=== PATIENT | female | born 1935 | race Caucasian/White ===

== ENCOUNTER 2016-08-07 17:06 | Inpatient (IN) | payer MEDICARE ==
[~2016-08-07] VITALS: Ht 157.5 cm; Wt 70.2 kg
[~2016-08-07 17:06] MED LIST: ACET-66 PO; ATOR20TA86 PO; CARV3 PO; ERGO2000 PO; FURO20TA4 PO; GABA-529 PO; GLIM4TAB3 PO; LOSA25TA21 PO; MECL-129 PO; METF500T4 PO; NITR0.4T SL
[2016-08-07] MEDS ORDERED: TRIGENTA PO (18:19)
[2016-08-07] MEDS ORDERED: ONDANSETRON HCL 4 MG/2 ML VIAL IVP ONE (19:45)
[2016-08-07] MEDS ORDERED: MORPHINE SULFATE 4 MG/ML SYRINGE IVP ONE ×3 (19:45→23:30)
[2016-08-07] MEDS ORDERED: SODIUM CHLORIDE 0.9% 1,000 ML IV ONE (19:45)
[2016-08-07 20:10] LABS: BASOPHILS # (AUTO) 0.02 K/uL (0.00-0.20); BASOPHILS % (AUTO) 0.2 % (0.0-2.0); EOSINOPHILS # (AUTO) 0.01 K/uL (0.00-0.70); EOSINOPHILS % (AUTO) 0.06 % (1.0-6.0); HEMATOCRIT 28.5 % (36-46); HEMOGLOBIN 9.6 g/dL (12.0-16.0); LYMPHOCYTES # (AUTO) 2.1 K/uL (1.0-4.8); LYMPHOCYTES % (AUTO) 18.1 % (22.0-44.0); MEAN CORPUSCULAR HGB CONC 33.9 G/dL (31.0-37.0); MEAN CORPUSCULAR VOLUME 88 fL (80-100); MONOCYTES % (AUTO) 8.4 % (2.0-9.0); NEUTROPHILS # (AUTO) 8.4 K/uL (1.8-7.7); NEUTROPHILS % (AUTO) 73.2 % (40.0-70.0); PLATELET COUNT (AUTO) 147 K/uL (150-450); RED BLOOD CELL COUNT(AUTO) 3.22 MIL/uL (4.00-5.20); RED CELL DISTRIBUTION WIDTH 14.8 % (11.5-14.5); WHITE BLOOD COUNT (AUTO) 11.4 K/uL (4.5-11.0)
[2016-08-07 20:35] LABS: CALCIUM, TOTAL 8.2 mg/dL (8.8-10.5); CREATININE 1.47 mg/dL (0.60-1.30); POTASSIUM 4.3 mmol/L (3.5-5.1)
[2016-08-07 20:40] LABS: ALBUMIN 3.6 g/dL (3.4-5.0); BILIRUBIN,TOTAL 0.2 mg/dL (0.1-1.0); TOTAL PROTEIN, SERUM 7.3 g/dL (6.4-8.2)
[2016-08-07] MEDS ORDERED: 0.9% SODIUM CHLORIDE 10 ML SYRINGE IVP PRN (23:15)
[2016-08-07] MEDS ORDERED: ONDANSETRON HCL 4 MG/2 ML VIAL IVP PRN (23:15)
[2016-08-07] MEDS ORDERED: ACETAMINOPHEN 325 MG TABLET PO PRN (23:15)
[2016-08-08] VITALS (7 sets, daily range): BP systolic 98–192; BP diastolic 52–76
[2016-08-08] MEDS ORDERED: ACETAMINOPHEN 500 MG TABLET PO PRN (00:15)
[2016-08-08] MEDS: CARVEDILOL 3.125 MG TABLET PO SCH ×3 (00:15→23:30)
[2016-08-08] MEDS ORDERED: 0.9% SODIUM CHLORIDE 10 ML SYRINGE IVP PRN (00:15)
[2016-08-08] MEDS: DOCUSATE SODIUM 100 MG CAPSULE PO SCH ×3 (00:15→23:30)
[2016-08-08] MEDS ORDERED: NITROGLYCERIN 0.4 MG SUBLINGUAL TABLET #25 SL PRN (00:15)
[2016-08-08] MEDS ORDERED: DEXTROSE 50%-WATER 25 GM/50 ML SYRINGE IVP PRN (00:30)
[2016-08-08] MEDS ORDERED: 0.9% SODIUM CHLORIDE 10 ML VIAL IVP ONE (00:31)
[2016-08-08] MEDS ORDERED: ONDANSETRON HCL 4 MG/2 ML VIAL IVP ONE (00:31)
[2016-08-08] MEDS ORDERED: SUCCINYLCHOLINE CHLORIDE 20 MG/ML 10 ML VIAL IVP ONE (00:31)
[2016-08-08] MEDS ORDERED: MORPHINE SULFATE/PF 0.5 MG/ML 10 ML AMP IVP ONE (00:31)
[2016-08-08] MEDS ORDERED: LIDOCAINE HCL/PF 2% 5 ML VIAL IM ONE (00:31)
[2016-08-08] MEDS ORDERED: FentaNYL CITRATE-PF 100 MCG/2 ML VIAL IVP ONE (00:31)
[2016-08-08] MEDS ORDERED: DEXAMETHASONE SOD PHOS 4 MG/ML VIAL IVP ONE (00:31)
[2016-08-08] MEDS ORDERED: PROPOFOL 1% 20 ML VIAL IVP ONE (00:31)
[2016-08-08 02:10] LABS: GLUCOSE,POINT OF CARE 142 MG/DL (70-110)
[2016-08-08] MEDS: MORPHINE SULFATE 2 MG/ML SYRINGE IVP PRN ×6 (04:23→18:31)
[2016-08-08 07:01] LABS: GLUCOSE,POINT OF CARE 111 MG/DL (70-110)
[2016-08-08] MEDS: PANTOPRAZOLE SODIUM 40 MG/VIAL IVP SCH (08:29)
[2016-08-08] MEDS: ATORVASTATIN CALCIUM 20 MG TABLET PO SCH (09:00)
[2016-08-08 11:46] LABS: GLUCOSE,POINT OF CARE 171 MG/DL (70-110)
[2016-08-08 18:46] LABS: GLUCOSE,POINT OF CARE 137 MG/DL (70-110)
[2016-08-08] MEDS ORDERED: SODIUM CHLORIDE 0.9% 1,000 ML IV ONE (19:10)
[2016-08-08] MEDS ORDERED: FentaNYL CITRATE-PF 100 MCG/2 ML VIAL IVP PRN (19:30)
[2016-08-08] MEDS ORDERED: MEPERIDINE-PF 25 MG/ML SYRINGE IVP PRN (19:30)
[2016-08-08] MEDS: ACETAMINOPHEN 1000 MG/ISO-OSM 100 ML IV SCH (20:00)
[2016-08-08] MEDS ORDERED: ACETAMINOPHEN 1000 MG/ISO-OSM 100 ML IV ONE (20:26)
[2016-08-08] MEDS: BUPIVACAINE HCL/PF 0.5% 30 ML VIAL ONE ×2 (20:27→22:20)
[2016-08-08] MEDS: BUPIVACAINE LIPOSOME/PF 1.3%-13.3MG/ML SUSPENSION 20 ML VIAL INJ ONE ×2 (20:48→22:20)
[2016-08-08] MEDS ORDERED: SODIUM CHLORIDE 0.9% 10 ML ONE (21:15)
[2016-08-08] MEDS ORDERED: METOPROLOL TARTRATE 5 MG/5 ML VIAL ONE (22:41)
[2016-08-08] MEDS ORDERED: METOPROLOL TARTRATE 5 MG/5 ML VIAL IVP ONE (22:45)
[2016-08-08] MEDS: GABAPENTIN 100 MG CAPSULE PO SCH (23:30)
[2016-08-08] MEDS: INSULIN ASPART 100 UNITS/ML SQ PRN (23:51)
[2016-08-09 00:21] LABS: GLUCOSE COMMENT 1 Received Meds; GLUCOSE,POINT OF CARE 206 MG/DL (70-110)
[2016-08-09] MEDS ORDERED: SODIUM CHLORIDE 0.9% 250 ML IV ONE (01:59)
[2016-08-09] MEDS: ACETAMINOPHEN 1000 MG/ISO-OSM 100 ML IV SCH ×3 (02:01→13:58)
[2016-08-09 04:20] VITALS: BP 162/59
[2016-08-09] MEDS: MORPHINE SULFATE 2 MG/ML SYRINGE IVP PRN ×6 (05:08→23:38)
[2016-08-09 05:46] LABS: GLUCOSE COMMENT 1 Received Meds; GLUCOSE,POINT OF CARE 228 MG/DL (70-110)
[2016-08-09] MEDS: INSULIN ASPART 100 UNITS/ML SQ PRN ×4 (05:59→21:36)
[2016-08-09 07:15] VITALS: BP 150/61
[2016-08-09 07:36] LABS: BASOPHILS # (AUTO) 0.01 K/uL (0.00-0.20); BASOPHILS % (AUTO) 0.1 % (0.0-2.0); EOSINOPHILS # (AUTO) 0.01 K/uL (0.00-0.70); EOSINOPHILS % (AUTO) 0.09 % (1.0-6.0); HEMATOCRIT 24.2 % (36-46); HEMOGLOBIN 8.3 g/dL (12.0-16.0); LYMPHOCYTES # (AUTO) 0.7 K/uL (1.0-4.8); LYMPHOCYTES % (AUTO) 6.1 % (22.0-44.0); MEAN CORPUSCULAR HEMOGLOBIN 30.6 pg (26.0-34.0); MEAN CORPUSCULAR HGB CONC 34.1 G/dL (31.0-37.0); MEAN CORPUSCULAR VOLUME 90 fL (80-100); MONOCYTES # (AUTO) 0.4 K/uL (0.1-1.0); NEUTROPHILS # (AUTO) 10.9 K/uL (1.8-7.7); PLATELET COUNT (AUTO) 124 K/uL (150-450)
[2016-08-09 07:42] LABS: NEUTROPHILS % (AUTO) 90.8 % (40.0-70.0)
[2016-08-09 08:00] LABS: CALCIUM, TOTAL 7.8 mg/dL (8.8-10.5); CREATININE 1.37 mg/dL (0.60-1.30); MAGNESIUM 2.1 mg/dL (1.80-2.40); POTASSIUM 4.4 mmol/L (3.5-5.1); THYROID STIMULATING HORMONE 1.26 uIU/mL (0.36-3.74)
[2016-08-09] MEDS: ATORVASTATIN CALCIUM 20 MG TABLET PO SCH (08:05)
[2016-08-09] MEDS: PANTOPRAZOLE SODIUM 40 MG/VIAL IVP SCH (08:06)
[2016-08-09] MEDS: OXYGEN THERAPY IH SCH (09:32)
[2016-08-09 11:14] VITALS: BP 147/54
[2016-08-09 12:26] LABS: GLUCOSE COMMENT 1 Received Meds; GLUCOSE,POINT OF CARE 197 MG/DL (70-110)
[2016-08-09 15:25] VITALS: BP 155/64
[2016-08-09 17:21] LABS: GLUCOSE COMMENT 1 Received Meds; GLUCOSE,POINT OF CARE 157 MG/DL (70-110)
[2016-08-09 19:45] VITALS: BP 148/61
[2016-08-09] MEDS: DOCUSATE SODIUM 100 MG CAPSULE PO SCH (21:23)
[2016-08-09] MEDS: CARVEDILOL 3.125 MG TABLET PO SCH (21:23)
[2016-08-09 23:36] VITALS: BP 163/75
[2016-08-10] VITALS (14 sets, daily range): BP systolic 128–189; BP diastolic 55–69
[2016-08-10] MEDS: MORPHINE SULFATE 2 MG/ML SYRINGE IVP PRN ×5 (02:57→17:31)
[2016-08-10] MEDS: OXYGEN THERAPY IH SCH ×2 (02:57→08:18)
[2016-08-10 06:23] LABS: BASOPHILS # (AUTO) 0.03 K/uL (0.00-0.20); BASOPHILS % (AUTO) 0.2 % (0.0-2.0); EOSINOPHILS % (AUTO) 0.01 % (1.0-6.0); HEMOGLOBIN 7.7 g/dL (12.0-16.0); LYMPHOCYTES # (AUTO) 2.4 K/uL (1.0-4.8); LYMPHOCYTES % (AUTO) 17.9 % (22.0-44.0); MEAN CORPUSCULAR HEMOGLOBIN 30.1 pg (26.0-34.0); MEAN CORPUSCULAR HGB CONC 33.6 G/dL (31.0-37.0); MEAN CORPUSCULAR VOLUME 90 fL (80-100); MONOCYTES # (AUTO) 1.2 K/uL (0.1-1.0); MONOCYTES % (AUTO) 8.5 % (2.0-9.0); NEUTROPHILS # (AUTO) 9.9 K/uL (1.8-7.7); NEUTROPHILS % (AUTO) 73.4 % (40.0-70.0); PLATELET COUNT (AUTO) 124 K/uL (150-450); RED BLOOD CELL COUNT(AUTO) 2.57 MIL/uL (4.00-5.20); RED CELL DISTRIBUTION WIDTH 13.8 % (11.5-14.5); WHITE BLOOD COUNT (AUTO) 13.5 K/uL (4.5-11.0)
[2016-08-10] MEDS: INSULIN ASPART 100 UNITS/ML SQ PRN ×3 (06:40→20:50)
[2016-08-10 06:41] LABS: GLUCOSE COMMENT 1 Received Meds; GLUCOSE,POINT OF CARE 180 MG/DL (70-110)
[2016-08-10 06:56] LABS: CALCIUM, TOTAL 7.7 mg/dL (8.8-10.5); CREATININE 1.5 mg/dL (0.60-1.30); MAGNESIUM 2.2 mg/dL (1.80-2.40); POTASSIUM 4.1 mmol/L (3.5-5.1)
[2016-08-10 07:16] LABS: GLUCOSE COMMENT 1 Received Meds; GLUCOSE,POINT OF CARE 177 MG/DL (70-110)
[2016-08-10] MEDS: ATORVASTATIN CALCIUM 20 MG TABLET PO SCH (08:18)
[2016-08-10] MEDS: PANTOPRAZOLE SODIUM 40 MG/VIAL IVP SCH (08:18)
[2016-08-10] MEDS: DOCUSATE SODIUM 100 MG CAPSULE PO SCH ×2 (08:18→20:49)
[2016-08-10] MEDS: CARVEDILOL 3.125 MG TABLET PO SCH ×2 (08:18→23:03)
[2016-08-10 11:41] LABS: GLUCOSE,POINT OF CARE 167 MG/DL (70-110)
[2016-08-10] MEDS: MORPHINE SULFATE 30 MG ER TABLET PO SCH ×2 (12:31→20:49)
[2016-08-10] MEDS ORDERED: SODIUM CHLORIDE 0.9% 500 ML IV ONE (13:43)
[2016-08-10] MEDS: OxyCODONE HCL/ACETAMINOPHEN 5-325 MG TABLET PO PRN (14:32)
[2016-08-10 17:41] LABS: GLUCOSE COMMENT 1 Received Meds; GLUCOSE,POINT OF CARE 204 MG/DL (70-110)
[2016-08-10] MEDS: ONDANSETRON HCL 4 MG/2 ML VIAL IVP PRN (19:33)
[2016-08-10] MEDS: GABAPENTIN 100 MG CAPSULE PO SCH (20:49)
[2016-08-11 03:13] LABS: GLUCOSE COMMENT 1 Received Meds; GLUCOSE,POINT OF CARE 195 MG/DL (70-110)
[2016-08-11 04:33] VITALS: BP 121/54
[2016-08-11 06:31] LABS: GLUCOSE,POINT OF CARE 111 MG/DL (70-110)
[2016-08-11 06:33] LABS: BASOPHILS % (AUTO) 0.3 % (0.0-2.0); EOSINOPHILS % (AUTO) 0 % (1.0-6.0); HEMATOCRIT 26.6 % (36-46); HEMOGLOBIN 8.9 g/dL (12.0-16.0); LYMPHOCYTES # (AUTO) 2.5 K/uL (1.0-4.8); LYMPHOCYTES % (AUTO) 23.2 % (22.0-44.0); MEAN CORPUSCULAR HEMOGLOBIN 30.2 pg (26.0-34.0); MEAN CORPUSCULAR HGB CONC 33.4 G/dL (31.0-37.0); MEAN CORPUSCULAR VOLUME 90 fL (80-100); MONOCYTES # (AUTO) 0.9 K/uL (0.1-1.0); MONOCYTES % (AUTO) 8.8 % (2.0-9.0); NEUTROPHILS # (AUTO) 7.3 K/uL (1.8-7.7); NEUTROPHILS % (AUTO) 67.7 % (40.0-70.0); PLATELET COUNT (AUTO) 122 K/uL (150-450); RED BLOOD CELL COUNT(AUTO) 2.94 MIL/uL (4.00-5.20); RED CELL DISTRIBUTION WIDTH 14.9 % (11.5-14.5); WHITE BLOOD COUNT (AUTO) 10.8 K/uL (4.5-11.0)
[2016-08-11 08:20] VITALS: BP 133/57
[2016-08-11] MEDS: CARVEDILOL 3.125 MG TABLET PO SCH ×2 (09:20→20:40)
[2016-08-11] MEDS: MORPHINE SULFATE 30 MG ER TABLET PO SCH ×2 (09:20→20:40)
[2016-08-11] MEDS: OXYGEN THERAPY IH SCH (09:20)
[2016-08-11] MEDS: ATORVASTATIN CALCIUM 20 MG TABLET PO SCH (09:20)
[2016-08-11] MEDS: DOCUSATE SODIUM 100 MG CAPSULE PO SCH ×2 (09:20→20:40)
[2016-08-11] MEDS: PANTOPRAZOLE SODIUM 40 MG/VIAL IVP SCH (09:21)
[2016-08-11 11:30] VITALS: BP 142/57
[2016-08-11] MEDS: INSULIN ASPART 100 UNITS/ML SQ PRN ×3 (12:20→20:49)
[2016-08-11 12:31] LABS: GLUCOSE COMMENT 1 Received Meds; GLUCOSE,POINT OF CARE 145 MG/DL (70-110)
[2016-08-11 15:15] VITALS: BP 144/60
[2016-08-11] MEDS: OxyCODONE HCL/ACETAMINOPHEN 5-325 MG TABLET PO PRN (17:19)
[2016-08-11 18:16] LABS: GLUCOSE COMMENT 1 Received Meds; GLUCOSE,POINT OF CARE 158 MG/DL (70-110)
[2016-08-11 19:28] VITALS: BP 139/59
[2016-08-11] MEDS: GABAPENTIN 100 MG CAPSULE PO SCH (20:40)
[2016-08-11 21:22] LABS: GLUCOSE COMMENT 1 Received Meds; GLUCOSE,POINT OF CARE 180 MG/DL (70-110)
[2016-08-11 23:25] VITALS: BP 135/60
[2016-08-12 04:47] VITALS: BP 130/61
[2016-08-12 07:19] VITALS: BP 159/68
[2016-08-12 07:26] LABS: GLUCOSE,POINT OF CARE 101 MG/DL (70-110)
[2016-08-12] MEDS: MORPHINE SULFATE 30 MG ER TABLET PO SCH ×2 (08:02→20:18)
[2016-08-12] MEDS: PANTOPRAZOLE SODIUM 40 MG/VIAL IVP SCH (08:02)
[2016-08-12] MEDS: ATORVASTATIN CALCIUM 20 MG TABLET PO SCH (08:02)
[2016-08-12] MEDS: DOCUSATE SODIUM 100 MG CAPSULE PO SCH ×2 (08:04→20:19)
[2016-08-12] MEDS: CARVEDILOL 3.125 MG TABLET PO SCH ×2 (08:04→20:19)
[2016-08-12] MEDS: OXYGEN THERAPY IH SCH ×2 (08:10→20:19)
[2016-08-12] MEDS: INSULIN ASPART 100 UNITS/ML SQ PRN ×2 (11:37→22:29)
[2016-08-12 11:51] LABS: GLUCOSE COMMENT 1 Received Meds; GLUCOSE,POINT OF CARE 160 MG/DL (70-110)
[2016-08-12 11:58] VITALS: BP 150/62
[2016-08-12 15:40] VITALS: BP 132/58
[2016-08-12] MEDS: AmLODIPine BESYLATE 10 MG TABLET PO SCH (16:11)
[2016-08-12 17:57] LABS: GLUCOSE,POINT OF CARE 94 MG/DL (70-110)
[2016-08-12 20:09] VITALS: BP 146/51
[2016-08-12] MEDS: GABAPENTIN 100 MG CAPSULE PO SCH (20:19)
[2016-08-12 20:46] LABS: GLUCOSE COMMENT 1 Received Meds; GLUCOSE,POINT OF CARE 155 MG/DL (70-110)
[2016-08-12 23:20] VITALS: BP 133/52
[2016-08-12] MEDS: OxyCODONE HCL/ACETAMINOPHEN 5-325 MG TABLET PO PRN (23:49)
[2016-08-13 04:23] VITALS: BP 139/54
[2016-08-13 05:32] LABS: GLUCOSE,POINT OF CARE 97 MG/DL (70-110)
[2016-08-13 06:10] LABS: BASOPHILS % (AUTO) 0.4 % (0.0-2.0); EOSINOPHILS % (AUTO) 0.1 % (1.0-6.0); HEMOGLOBIN 9.3 g/dL (12.0-16.0); LYMPHOCYTES % (AUTO) 22.2 % (22.0-44.0); MEAN CORPUSCULAR HEMOGLOBIN 29.9 pg (26.0-34.0); MEAN CORPUSCULAR HGB CONC 33.2 G/dL (31.0-37.0); MEAN CORPUSCULAR VOLUME 90 fL (80-100); MONOCYTES # (AUTO) 0.8 K/uL (0.1-1.0); MONOCYTES % (AUTO) 9.1 % (2.0-9.0); NEUTROPHILS # (AUTO) 6.1 K/uL (1.8-7.7); NEUTROPHILS % (AUTO) 68.2 % (40.0-70.0); PLATELET COUNT (AUTO) 170 K/uL (150-450); RED CELL DISTRIBUTION WIDTH 14.5 % (11.5-14.5); WHITE BLOOD COUNT (AUTO) 8.9 K/uL (4.5-11.0)
[2016-08-13 06:27] LABS: CALCIUM, TOTAL 8.2 mg/dL (8.8-10.5); CREATININE 1.33 mg/dL (0.60-1.30); POTASSIUM 4.9 mmol/L (3.5-5.1)
[2016-08-13 07:40] VITALS: BP 139/55
[2016-08-13] MEDS: OXYGEN THERAPY IH SCH (08:00)
[2016-08-13] MEDS: ATORVASTATIN CALCIUM 20 MG TABLET PO SCH (08:52)
[2016-08-13] MEDS: PANTOPRAZOLE SODIUM 40 MG/VIAL IVP SCH (08:52)
[2016-08-13] MEDS: CARVEDILOL 3.125 MG TABLET PO SCH (08:53)
[2016-08-13] MEDS: MORPHINE SULFATE 30 MG ER TABLET PO SCH (08:53)
[2016-08-13] MEDS: AmLODIPine BESYLATE 10 MG TABLET PO SCH (08:53)
[2016-08-13] MEDS: DOCUSATE SODIUM 100 MG CAPSULE PO SCH (08:53)
[2016-08-13 11:32] VITALS: BP 131/53
[2016-08-13 11:32] LABS: GLUCOSE,POINT OF CARE 151 MG/DL (70-110)
[2016-08-13] MEDS: INSULIN ASPART 100 UNITS/ML SQ PRN (12:16)
[2016-08-13] MEDS: ONDANSETRON HCL 4 MG/2 ML VIAL IVP PRN (12:21)
[2016-08-13] MEDS ORDERED: MORP15 PO (15:08)
[2016-08-13] MEDS ORDERED: PERCT PO (15:09)
[2016-08-13] MEDS ORDERED: AMLO-512 PO (15:10)
[2016-08-13 15:30] VITALS: BP 123/56
[2016-08-15] MEDS ORDERED: CHOLECALCIFEROL (VIT D3) 50,000 UNITS CAPSULE PO SCH (09:00)
== END 2016-08-13 17:15 | disposition home health service (06) | DRG 502 ==
LOC: EMS 17:22 → 6N 23:07
PROVIDERS: ADMIT Internal Medicine; ATTEND Family Medicine
PROC: 0MQ30ZZ Repair Right Elbow Bursa and Ligament, Open Approach (ICD-10-PCS; 2016-08-08)
PROC: 0PSK04Z Reposition Right Ulna with Internal Fixation Device, Open Approach (ICD-10-PCS; 2016-08-08)
PROC: 0PSH04Z Reposition Right Radius with Internal Fixation Device, Open Approach (ICD-10-PCS; principal; 2016-08-08 20:05)
DX: S52.131A Displaced fracture of neck of right radius, initial encounter for closed fracture (principal); S52.021A Displaced fracture of olecranon process without intraarticular extension of right ulna, initial encounter for closed fracture; S53.431A Radial collateral ligament sprain of right elbow, initial encounter; E86.0 Dehydration; E11.9 Type 2 diabetes mellitus without complications; I10 Essential (primary) hypertension; E78.00 Pure hypercholesterolemia, unspecified; S00.83XA Contusion of other part of head, initial encounter; D64.9 Anemia, unspecified; E04.1 Nontoxic single thyroid nodule; Z88.5 Allergy status to narcotic agent; Z88.8 Allergy status to other drugs, medicaments and biological substances; Z79.899 Other long term (current) drug therapy; Z98.890 Other specified postprocedural states; Z87.01 Personal history of pneumonia (recurrent); W18.39XA Other fall on same level, initial encounter; Y93.01 Activity, walking, marching and hiking; Y92.89 Other specified places as the place of occurrence of the external cause; Y99.8 Other external cause status; N18.9 Chronic kidney disease, unspecified
CPT/HCPCS: 70486; 73200; 82962; 83735; 84443; 86850; 86900; 86901; 86920; 87081; 93005; 96361; 96374; 96375; 96376; 97110; 97163; 97167; 97530; 97535; 99285; C1713; C9113; C9290; J0131; J0330; J0690; J1100; J2270; J2274; J2405; J2704; J3010; J3490; J7030; J7040; J7050; P9016

== ENCOUNTER 2018-08-01 14:17 | Inpatient (IN) | payer MEDICARE ==
[~2018-08-01] VITALS: Ht 147.3 cm; Wt 73.5 kg
[~2018-08-01 14:17] MED LIST changes: +AMLO-512 PO; -FURO20TA4 PO; -GLIM4TAB3 PO; -LOSA25TA21 PO; -MECL-129 PO; -METF500T4 PO; +MORP15 PO; +PERCT PO; +TRIGENTA PO
[2018-08-01] MEDS ORDERED: LINA5TAB PO (14:42)
[2018-08-01 14:44] LABS: GLUCOSE,POINT OF CARE 228 MG/DL (70-110)
[2018-08-01] MEDS ORDERED: DOPamine HCL 400 MG/D5%-WATER 250 ML IV PRN ×3 (15:00→23:47)
[2018-08-01 15:04] LABS: BASOPHILS % (AUTO) 0.1 % (0.0-2.0); EOSINOPHILS % (AUTO) 0 % (1.0-6.0); HEMATOCRIT 28.7 % (36-46); HEMOGLOBIN 9.4 g/dL (12.0-16.0); LYMPHOCYTES # (AUTO) 1.3 K/uL (1.0-4.8); LYMPHOCYTES % (AUTO) 14.4 % (22.0-44.0); MEAN CORPUSCULAR HEMOGLOBIN 31.1 pg (26.0-34.0); MEAN CORPUSCULAR HGB CONC 32.9 G/dL (31.0-37.0); MEAN CORPUSCULAR VOLUME 95 fL (80-100); MONOCYTES # (AUTO) 0.7 K/uL (0.1-1.0); MONOCYTES % (AUTO) 7.3 % (2.0-9.0); NEUTROPHILS # (AUTO) 7.2 K/uL (1.8-7.7); NEUTROPHILS % (AUTO) 78.2 % (40.0-70.0); PLATELET COUNT (AUTO) 126 K/uL (150-450); RED BLOOD CELL COUNT(AUTO) 3.03 MIL/uL (4.00-5.20); RED CELL DISTRIBUTION WIDTH 14.2 % (11.5-14.5)
[2018-08-01 15:18] LABS: CREATININE 1.78 mg/dL (0.60-1.30); POTASSIUM 4.9 mmol/L (3.5-5.1)
[2018-08-01 15:22] LABS: PROTHROMBIN TIME 10.4 SEC (9.4-11.6)
[2018-08-01 15:46] LABS: ALBUMIN 3.2 g/dL (3.4-5.0); BILIRUBIN,TOTAL 0.3 mg/dL (0.1-1.0); TOTAL PROTEIN, SERUM 6.7 g/dL (6.4-8.2)
[2018-08-01] MEDS ORDERED: ACETAMINOPHEN 325 MG TABLET PO PRN (16:30)
[2018-08-01] MEDS ORDERED: ONDANSETRON HCL 4 MG/2 ML VIAL IVP PRN (16:30)
[2018-08-01 20:54] LABS: GLUCOSE,POINT OF CARE 233 MG/DL (70-110)
[2018-08-01] MEDS ORDERED: MAGNESIUM HYDROXIDE SUSPENSION 30 ML UDCUP PO PRN (22:45)
[2018-08-01] MEDS ORDERED: BISACODYL 10 MG RECTAL RECTAL SUPPOSITORY PR PRN (22:45)
[2018-08-01] MEDS ORDERED: DEXTROSE 50%-WATER 25 GM/50 ML SYRINGE IVP PRN (22:45)
[2018-08-01] MEDS ORDERED: ZOLPIDEM TARTRATE 5 MG TABLET PO PRN (22:45)
[2018-08-01 23:00] VITALS: BP 145/59
[2018-08-02] VITALS (8 sets, daily range): BP systolic 112–148; BP diastolic 33–53
[2018-08-02] MEDS: HEPARIN SODIUM,PORCINE 5,000 UNITS/ML VIAL SQ SCH ×3 (00:15→15:29)
[2018-08-02 00:32] LABS: ABG A-A DIFF O2 126.4 mmHg (10-20.0); ABG CARBOXYHEMOGLOBIN 0.3 % (0.0-1.5); ABG METHEMOGLOBIN 0.3 % (0.0-1.5); ABG OXYGEN CONTENT 13.1 mL/dL (15.0-23.0); ABG OXYGEN SATURATION 95.6 % (95.0-98.0); ABG PCO2 23 mmHg (35-45); ABG PH 7.374 (7.35-7.450); ABG TOTAL HEMOGLOBIN 9.7 G/dL (12.0-18.0); PO2, ARTERIAL BG 82.1 mmHg (71.0-79.0); SOURCE, BLOOD GAS ARTERIAL; TEMPERATURE, FAHRENHEIT, BG 97.5 FAHREN (96.0-98.6)
[2018-08-02 00:33] LABS: O2 DEVICE,BLOOD GAS CANNULA (ROOM AIR); SITE, BLOOD GAS RT BRACHIAL
[2018-08-02] MEDS: ACETAMINOPHEN 325 MG TABLET PO PRN ×3 (00:52→19:43)
[2018-08-02 05:29] LABS: BASOPHILS % (AUTO) 0.1 % (0.0-2.0); CREATININE 1.94 mg/dL (0.60-1.30); EOSINOPHILS % (AUTO) 0 % (1.0-6.0); HEMATOCRIT 28.5 % (36-46); HEMOGLOBIN 9.4 g/dL (12.0-16.0); LYMPHOCYTES # (AUTO) 1.3 K/uL (1.0-4.8); LYMPHOCYTES % (AUTO) 9.5 % (22.0-44.0); MEAN CORPUSCULAR HEMOGLOBIN 30.9 pg (26.0-34.0); MEAN CORPUSCULAR HGB CONC 32.9 G/dL (31.0-37.0); MEAN CORPUSCULAR VOLUME 94 fL (80-100); MONOCYTES # (AUTO) 0.6 K/uL (0.1-1.0); MONOCYTES % (AUTO) 4.2 % (2.0-9.0); NEUTROPHILS # (AUTO) 11.5 K/uL (1.8-7.7); PLATELET COUNT (AUTO) 125 K/uL (150-450); POTASSIUM 5.2 mmol/L (3.5-5.1); RED BLOOD CELL COUNT(AUTO) 3.04 MIL/uL (4.00-5.20)
[2018-08-02] MEDS: INSULIN LISPRO 100 UNITS/ML SQ PRN ×3 (05:51→21:38)
[2018-08-02 05:57] LABS: NEUTROPHILS % (AUTO) 86.2 % (40.0-70.0)
[2018-08-02 05:58] LABS: PLATELET MORPHOLOGY COMMENT GIANT PLTS PRESENT
[2018-08-02 06:35] LABS: GLUCOSE,POINT OF CARE 191 MG/DL (70-110)
[2018-08-02] MEDS: PANTOPRAZOLE SODIUM 40 MG DR TABLET PO SCH (08:45)
[2018-08-02] MEDS: FUROSEMIDE 20 MG/2 ML VIAL IVP SCH ×2 (08:45→19:43)
[2018-08-02] MEDS: DOCUSATE SODIUM 100 MG CAPSULE PO SCH ×2 (08:45→19:43)
[2018-08-02] MEDS: ATORVASTATIN CALCIUM 20 MG TABLET PO SCH (08:45)
[2018-08-02 11:12] LABS: APPEARANCE,URINE CLOUDY (CLEAR); BILIRUBIN,URINE NEGATIVE (NEGATIVE); GLUCOSE, URINE (UA) NEGATIVE (NEGATIVE); KETONES,URINE NEGATIVE (NEGATIVE); LEUKOCYTE ESTERASE ,URINE LARGE (NEGATIVE); NITRATE,URINE NEGATIVE (NEGATIVE); OCCULT BLOOD,URINE NEGATIVE (NEGATIVE); PROTEIN,URINE SEE CONFIRM (NEGATIVE); UROBILINOGEN,URINE 0.2 mg/dL (<=1.0)
[2018-08-02 12:10] LABS: BACTERIA,URINE Many /HPF (None Seen); RBC,URINE 0-2 /HPF (0-2); SQUAMOUS EPITHELIAL CELL,UR Moderate /LPF (None Seen); SULFOSALICYLIC ACID,URINE 2+ (Negative); WBC,URINE 26-50 /HPF (0-5)
[2018-08-02 14:39] LABS: GLUCOSE,POINT OF CARE 196 MG/DL (70-110)
[2018-08-02 21:14] LABS: GLUCOSE,POINT OF CARE 103 MG/DL (70-110)
[2018-08-02 23:30] LABS: GLUCOSE,POINT OF CARE 155 MG/DL (70-110)
[2018-08-03] VITALS: BP 133/52
[2018-08-03 04:00] VITALS: BP 161/57
[2018-08-03 05:05] LABS: CREATININE 2.17 mg/dL (0.60-1.30); POTASSIUM 4.9 mmol/L (3.5-5.1)
[2018-08-03 06:54] LABS: GLUCOSE,POINT OF CARE 154 MG/DL (70-110)
[2018-08-03 06:58] LABS: BASOPHILS % (AUTO) 0.1 % (0.0-2.0); EOSINOPHILS % (AUTO) 0 % (1.0-6.0); HEMATOCRIT 27.2 % (36-46); LYMPHOCYTES # (AUTO) 1.6 K/uL (1.0-4.8); LYMPHOCYTES % (AUTO) 12.7 % (22.0-44.0); MEAN CORPUSCULAR HEMOGLOBIN 30.7 pg (26.0-34.0); MEAN CORPUSCULAR HGB CONC 33.1 G/dL (31.0-37.0); MEAN CORPUSCULAR VOLUME 93 fL (80-100); MONOCYTES # (AUTO) 1.1 K/uL (0.1-1.0); MONOCYTES % (AUTO) 9.1 % (2.0-9.0); NEUTROPHILS # (AUTO) 9.6 K/uL (1.8-7.7); NEUTROPHILS % (AUTO) 78.1 % (40.0-70.0); PLATELET COUNT (AUTO) 115 K/uL (150-450); RED BLOOD CELL COUNT(AUTO) 2.93 MIL/uL (4.00-5.20); RED CELL DISTRIBUTION WIDTH 14.1 % (11.5-14.5)
[2018-08-03] MEDS: HEPARIN SODIUM,PORCINE 5,000 UNITS/ML VIAL SQ SCH ×3 (07:02→15:49)
[2018-08-03] MEDS: FUROSEMIDE 20 MG/2 ML VIAL IVP SCH ×2 (07:02→21:17)
[2018-08-03 08:00] VITALS: BP 160/44
[2018-08-03] MEDS: ATORVASTATIN CALCIUM 20 MG TABLET PO SCH (09:01)
[2018-08-03] MEDS: PANTOPRAZOLE SODIUM 40 MG DR TABLET PO SCH (09:01)
[2018-08-03] MEDS: DOCUSATE SODIUM 100 MG CAPSULE PO SCH ×2 (09:01→21:17)
[2018-08-03] MEDS: ACETAMINOPHEN 325 MG TABLET PO PRN ×2 (09:02→21:17)
[2018-08-03 12:00] VITALS: BP 111/38
[2018-08-03] MEDS: INSULIN LISPRO 100 UNITS/ML SQ PRN ×3 (12:37→21:22)
[2018-08-03 12:54] LABS: GLUCOSE,POINT OF CARE 208 MG/DL (70-110)
[2018-08-03] MEDS ORDERED: SODIUM CHLORIDE 0.9% 250 ML IV ONE (13:16)
[2018-08-03] MEDS: LEVOFLOXACIN 500 MG/D5% WATER 100 ML IV SCH (13:32)
[2018-08-03] MEDS: CefTRIAXone 1 GM/DEXTROSE 50 ML IV SCH (15:47)
[2018-08-03 16:00] VITALS: BP 126/46
[2018-08-03] MEDS: ONDANSETRON HCL 4 MG/2 ML VIAL IVP PRN (16:07)
[2018-08-03 19:08] LABS: GLUCOSE,POINT OF CARE 189 MG/DL (70-110)
[2018-08-03 20:30] LABS: GLUCOSE,POINT OF CARE 186 MG/DL (70-110)
[2018-08-03 21:10] VITALS: BP 157/48
[2018-08-03] MEDS: SODIUM BICARBONATE 650 MG TABLET PO SCH (21:17)
[2018-08-04] VITALS (8 sets, daily range): BP systolic 118–175; BP diastolic 41–76
[2018-08-04] MEDS: HEPARIN SODIUM,PORCINE 5,000 UNITS/ML VIAL SQ SCH ×3 (00:07→16:38)
[2018-08-04 05:19] LABS: MAGNESIUM 2.7 mg/dL (1.80-2.40); PHOSPHORUS 4.3 mg/dL (2.5-4.9)
[2018-08-04 06:51] LABS: BASOPHILS % (AUTO) 0.1 % (0.0-2.0); EOSINOPHILS % (AUTO) 0 % (1.0-6.0); HEMATOCRIT 26.8 % (36-46); HEMOGLOBIN 9.1 g/dL (12.0-16.0); LYMPHOCYTES # (AUTO) 1.3 K/uL (1.0-4.8); LYMPHOCYTES % (AUTO) 11.6 % (22.0-44.0); MEAN CORPUSCULAR HEMOGLOBIN 31.9 pg (26.0-34.0); MEAN CORPUSCULAR HGB CONC 33.9 G/dL (31.0-37.0); MEAN CORPUSCULAR VOLUME 94 fL (80-100); MONOCYTES # (AUTO) 0.9 K/uL (0.1-1.0); MONOCYTES % (AUTO) 8.7 % (2.0-9.0); NEUTROPHILS # (AUTO) 8.6 K/uL (1.8-7.7); NEUTROPHILS % (AUTO) 79.6 % (40.0-70.0); PLATELET COUNT (AUTO) 122 K/uL (150-450); RED BLOOD CELL COUNT(AUTO) 2.85 MIL/uL (4.00-5.20)
[2018-08-04 07:00] LABS: CREATININE 2.4 mg/dL (0.60-1.30); POTASSIUM 4.8 mmol/L (3.5-5.1)
[2018-08-04 07:04] LABS: GLUCOSE,POINT OF CARE 128 MG/DL (70-110)
[2018-08-04] MEDS: FUROSEMIDE 20 MG/2 ML VIAL IVP SCH (08:32)
[2018-08-04] MEDS: DOCUSATE SODIUM 100 MG CAPSULE PO SCH ×2 (08:33→21:05)
[2018-08-04] MEDS: PANTOPRAZOLE SODIUM 40 MG DR TABLET PO SCH (08:33)
[2018-08-04] MEDS: SODIUM BICARBONATE 650 MG TABLET PO SCH ×2 (08:33→21:05)
[2018-08-04] MEDS: ATORVASTATIN CALCIUM 20 MG TABLET PO SCH (08:33)
[2018-08-04 09:44] LABS: CREATININE,URINE RANDOM 67.1 mg/dL (30.0-125.0)
[2018-08-04] MEDS ORDERED: SODIUM CHLORIDE 0.45% 1,000 ML IV ONE (10:15)
[2018-08-04] MEDS: INSULIN LISPRO 100 UNITS/ML SQ PRN ×2 (12:11→21:06)
[2018-08-04] MEDS: EPOETIN ALFA 10,000 UNITS/ML VIAL SQ SCH (12:28)
[2018-08-04 14:54] LABS: GLUCOSE,POINT OF CARE 163 MG/DL (70-110)
[2018-08-04] MEDS: CefTRIAXone 1 GM/DEXTROSE 50 ML IV SCH (15:20)
[2018-08-04] MEDS: LOSARTAN POTASSIUM 25 MG TABLET PO SCH ×2 (16:38→21:05)
[2018-08-04 17:04] LABS: GLUCOMETER DEV NAME(LOC) 5S.2; GLUCOSE,POINT OF CARE 96 MG/DL (70-110)
[2018-08-04] MEDS ORDERED: LOSARTAN POTASSIUM 25 MG TABLET PO SCH (21:00)
[2018-08-04] MEDS: ALLOPURINOL 100 MG TABLET PO SCH (21:05)
[2018-08-05] VITALS (7 sets, daily range): BP systolic 138–176; BP diastolic 40–70
[2018-08-05] MEDS: HEPARIN SODIUM,PORCINE 5,000 UNITS/ML VIAL SQ SCH ×3 (01:09→16:21)
[2018-08-05 04:54] LABS: GLUCOMETER DEV NAME(LOC) 5S.2; GLUCOSE,POINT OF CARE 144 MG/DL (70-110)
[2018-08-05 06:42] LABS: CALCIUM, TOTAL 8.4 mg/dL (8.8-10.5); CREATININE 2.31 mg/dL (0.60-1.30); MAGNESIUM 2.7 mg/dL (1.80-2.40); POTASSIUM 4.5 mmol/L (3.5-5.1); URIC ACID 11.3 mg/dL (2.6-7.2)
[2018-08-05] MEDS: DOCUSATE SODIUM 100 MG CAPSULE PO SCH ×2 (08:05→20:07)
[2018-08-05] MEDS: ATORVASTATIN CALCIUM 20 MG TABLET PO SCH (08:05)
[2018-08-05] MEDS: PANTOPRAZOLE SODIUM 40 MG DR TABLET PO SCH (08:06)
[2018-08-05] MEDS: ALLOPURINOL 100 MG TABLET PO SCH ×2 (08:06→20:07)
[2018-08-05] MEDS: SODIUM BICARBONATE 650 MG TABLET PO SCH ×2 (08:06→20:07)
[2018-08-05] MEDS: LOSARTAN POTASSIUM 25 MG TABLET PO SCH (08:06)
[2018-08-05 08:15] LABS: GLUCOMETER DEV NAME(LOC) 5S.1; GLUCOSE,POINT OF CARE 130 MG/DL (70-110)
[2018-08-05] MEDS ORDERED: ALBUTEROL SULFATE 2.5 MG/0.5 ML NEB SOLUTION NEB PRN (11:45)
[2018-08-05] MEDS: INSULIN LISPRO 100 UNITS/ML SQ PRN ×2 (12:10→20:09)
[2018-08-05] MEDS: LEVOFLOXACIN 500 MG/D5% WATER 100 ML IV SCH (14:01)
[2018-08-05] MEDS: IPRATROPIUM BROMIDE 0.5 MG/2.5 ML NEB SOLUTION NEB SCH (15:46)
[2018-08-05] MEDS: CefTRIAXone 1 GM/DEXTROSE 50 ML IV SCH (16:21)
[2018-08-05] MEDS: HydrALAZINE HCL 25 MG TABLET PO SCH ×2 (16:21→20:07)
[2018-08-05 22:16] LABS: APPEARANCE,URINE CLOUDY (CLEAR); BILIRUBIN,URINE NEGATIVE (NEGATIVE); GLUCOSE, URINE (UA) NEGATIVE (NEGATIVE); KETONES,URINE NEGATIVE (NEGATIVE); LEUKOCYTE ESTERASE ,URINE SMALL (NEGATIVE); NITRATE,URINE NEGATIVE (NEGATIVE); OCCULT BLOOD,URINE LARGE (NEGATIVE); PROTEIN,URINE SEE CONFIRM (NEGATIVE); UROBILINOGEN,URINE 0.2 mg/dL (<=1.0)
[2018-08-05 22:23] LABS: BACTERIA,URINE Few /HPF (None Seen); RBC,URINE 26-50 /HPF (0-2); SQUAMOUS EPITHELIAL CELL,UR Many /LPF (None Seen); SULFOSALICYLIC ACID,URINE 3+ (Negative)
[2018-08-06] MEDS: HEPARIN SODIUM,PORCINE 5,000 UNITS/ML VIAL SQ SCH ×3 (00:24→15:47)
[2018-08-06 04:15] VITALS: BP 149/48
[2018-08-06 07:11] LABS: BASOPHILS % (AUTO) 0.2 % (0.0-2.0); EOSINOPHILS % (AUTO) 0.1 % (1.0-6.0); HEMATOCRIT 27.3 % (36-46); HEMOGLOBIN 9.3 g/dL (12.0-16.0); LYMPHOCYTES % (AUTO) 10.6 % (22.0-44.0); MEAN CORPUSCULAR HEMOGLOBIN 31.6 pg (26.0-34.0); MEAN CORPUSCULAR HGB CONC 33.9 G/dL (31.0-37.0); MEAN CORPUSCULAR VOLUME 93 fL (80-100); MONOCYTES # (AUTO) 0.8 K/uL (0.1-1.0); MONOCYTES % (AUTO) 8.5 % (2.0-9.0); NEUTROPHILS # (AUTO) 7.9 K/uL (1.8-7.7); NEUTROPHILS % (AUTO) 80.6 % (40.0-70.0); PLATELET COUNT (AUTO) 155 K/uL (150-450); RED BLOOD CELL COUNT(AUTO) 2.93 MIL/uL (4.00-5.20); RED CELL DISTRIBUTION WIDTH 14.1 % (11.5-14.5)
[2018-08-06 07:29] LABS: CALCIUM, TOTAL 7.8 mg/dL (8.8-10.5); CREATININE 2.42 mg/dL (0.60-1.30); MAGNESIUM 2.6 mg/dL (1.80-2.40); POTASSIUM 4.6 mmol/L (3.5-5.1)
[2018-08-06] MEDS: IPRATROPIUM BROMIDE 0.5 MG/2.5 ML NEB SOLUTION NEB SCH ×2 (08:00→16:23)
[2018-08-06] MEDS: HydrALAZINE HCL 25 MG TABLET PO SCH ×3 (08:12→20:37)
[2018-08-06] MEDS: PANTOPRAZOLE SODIUM 40 MG DR TABLET PO SCH (08:13)
[2018-08-06] MEDS: ALLOPURINOL 100 MG TABLET PO SCH ×2 (08:13→20:37)
[2018-08-06] MEDS: ATORVASTATIN CALCIUM 20 MG TABLET PO SCH (08:13)
[2018-08-06] MEDS: SODIUM BICARBONATE 650 MG TABLET PO SCH ×2 (08:13→20:35)
[2018-08-06] MEDS: DOCUSATE SODIUM 100 MG CAPSULE PO SCH ×2 (08:13→20:37)
[2018-08-06 08:16] VITALS: BP 168/57
[2018-08-06 09:02] LABS: INR 1.1 (0.9-1.1)
[2018-08-06] MEDS ORDERED: HydrALAZINE HCL 25 MG TABLET PO ONE (10:45)
[2018-08-06] MEDS: LACTULOSE 20 GM/30 ML SOLUTION UDCUP PO SCH (11:21)
[2018-08-06] MEDS: INSULIN LISPRO 100 UNITS/ML SQ PRN (11:22)
[2018-08-06 11:26] VITALS: BP 172/43
[2018-08-06 11:52] LABS: LEGIONELLA PNEUMO AG URINE Negative (Negative); ORGANISM ID Not indicated.; S PNEUMO SOURCE Urine; STREP PNEUMONIAE AG URINE Negative (Negative); STREP.PNEUMO BODY FLUID CULT. Not Indicated
[2018-08-06] MEDS ORDERED: HEPARIN SODIUM,PORCINE 1,000 UNITS/ML 10 ML VIAL ONE (12:14)
[2018-08-06] MEDS ORDERED: HEPARIN SODIUM 1000 UNITS/NS 500 ML ONE (12:15)
[2018-08-06] MEDS ORDERED: LIDOCAINE/PF 1% 5 ML VIAL ONE (12:15)
[2018-08-06 12:50] LABS: BILIRUBIN,URINE NEGATIVE (NEGATIVE); GLUCOSE, URINE (UA) NEGATIVE (NEGATIVE); KETONES,URINE NEGATIVE (NEGATIVE); LEUKOCYTE ESTERASE ,URINE NEGATIVE (NEGATIVE); NITRATE,URINE NEGATIVE (NEGATIVE); OCCULT BLOOD,URINE NEGATIVE (NEGATIVE); PROTEIN,URINE SEE CONFIRM (NEGATIVE); UROBILINOGEN,URINE 0.2 mg/dL (<=1.0)
[2018-08-06 12:53] VITALS: BP 159/53
[2018-08-06 13:30] LABS: APPEARANCE,URINE HAZY (CLEAR)
[2018-08-06 13:32] LABS: BACTERIA,URINE None Seen /HPF (None Seen); RBC,URINE 0-2 /HPF (0-2); SQUAMOUS EPITHELIAL CELL,UR Many /LPF (None Seen); WBC,URINE 0-2 /HPF (0-5)
[2018-08-06 13:33] LABS: COARSE GRANULAR CASTS,URINE 0-2 /LPF (None Seen)
[2018-08-06 15:35] VITALS: BP 161/66
[2018-08-06 15:39] LABS: GLUCOMETER DEV NAME(LOC) 5S.2; GLUCOSE,POINT OF CARE 169 MG/DL (70-110)
[2018-08-06 15:39] LABS: GLUCOMETER DEV NAME(LOC) 5S.2; GLUCOSE,POINT OF CARE 130 MG/DL (70-110)
[2018-08-06 15:39] LABS: GLUCOMETER DEV NAME(LOC) 5S.2; GLUCOSE,POINT OF CARE 166 MG/DL (70-110)
[2018-08-06 15:39] LABS: GLUCOMETER DEV NAME(LOC) 5S.2; GLUCOSE,POINT OF CARE 145 MG/DL (70-110)
[2018-08-06 15:39] LABS: GLUCOMETER DEV NAME(LOC) 5S.2; GLUCOSE,POINT OF CARE 143 MG/DL (70-110)
[2018-08-06] MEDS ORDERED: SODIUM CHLORIDE 0.9% 2,000 ML IV ONE (15:53)
[2018-08-06] MEDS ORDERED: SODIUM CHLORIDE 0.9% 100 ML ONE (18:34)
[2018-08-06] MEDS: CefTRIAXone 1 GM/DEXTROSE 50 ML IV SCH (18:36)
[2018-08-06 19:39] LABS: GLUCOMETER DEV NAME(LOC) 5S.1; GLUCOSE,POINT OF CARE 120 MG/DL (70-110)
[2018-08-06 19:46] VITALS: BP 157/64
[2018-08-06] MEDS: ACETAMINOPHEN 325 MG TABLET PO PRN (20:35)
[2018-08-07] VITALS (19 sets, daily range): BP systolic 109–194; BP diastolic 49–82
[2018-08-07] MEDS: IPRATROPIUM BROMIDE 0.5 MG/2.5 ML NEB SOLUTION NEB SCH ×3 (00:10→16:00)
[2018-08-07 06:28] LABS: CALCIUM, TOTAL 7.8 mg/dL (8.8-10.5); CREATININE 2.5 mg/dL (0.60-1.30); POTASSIUM 4.3 mmol/L (3.5-5.1)
[2018-08-07] MEDS: HEPARIN SODIUM,PORCINE 5,000 UNITS/ML VIAL SQ SCH ×3 (07:06→16:00)
[2018-08-07] MEDS: DOCUSATE SODIUM 100 MG CAPSULE PO SCH ×2 (07:06→19:30)
[2018-08-07 08:04] LABS: GLUCOMETER DEV NAME(LOC) 5S.2; GLUCOSE,POINT OF CARE 142 MG/DL (70-110)
[2018-08-07 08:04] LABS: GLUCOMETER DEV NAME(LOC) 5S.2; GLUCOSE,POINT OF CARE 157 MG/DL (70-110)
[2018-08-07] MEDS: SODIUM BICARBONATE 650 MG TABLET PO SCH ×2 (09:00→19:31)
[2018-08-07] MEDS: LACTULOSE 20 GM/30 ML SOLUTION UDCUP PO SCH (09:00)
[2018-08-07] MEDS: ALLOPURINOL 100 MG TABLET PO SCH ×2 (09:00→19:31)
[2018-08-07] MEDS: HydrALAZINE HCL 25 MG TABLET PO SCH ×4 (09:00→21:00)
[2018-08-07] MEDS: INSULIN LISPRO 100 UNITS/ML SQ PRN ×2 (12:04→17:29)
[2018-08-07 12:28] LABS: SPECIMENTYPE,BODY FLUID PLEURAL
[2018-08-07 12:39] LABS: GLUCOMETER DEV NAME(LOC) 5S.2; GLUCOSE,POINT OF CARE 142 MG/DL (70-110)
[2018-08-07] MEDS ORDERED: LIDOCAINE/PF 1% 30 ML VIAL ONE (13:28)
[2018-08-07] MEDS ORDERED: IOHEXOL 300 MG/ML 50 ML VIAL ONE (13:28)
[2018-08-07] MEDS ORDERED: SODIUM BICARBONATE 50 MEQ/50 ML VIAL ONE (13:28)
[2018-08-07 13:48] LABS: APPEARANCE,SPUN,BODY FLUID CLEAR (CLEAR); COLOR,BODY FLUID YELLOW (LT YELLOW); TOTAL VOLUME,BODY FLUID 650 mL; WBC, BODY FLUID 60 /cu. mm.
[2018-08-07 13:49] LABS: APPEARANCE,UNSPUN,BODY FLUID HAZY (CLEAR)
[2018-08-07 14:01] LABS: BASOPHILS,BODY FLUID 0 %; EOSINOPHILS,BF (ANAL) 0 %; LYMPHOCYTES,BODY FLUID 64 %; MONOCYTES,BODY FLUID 30 %; NEUTROPHILS,BODY FLUID 6 %
[2018-08-07] MEDS ORDERED: FentaNYL CITRATE-PF 100 MCG/2 ML VIAL ONE (14:36)
[2018-08-07] MEDS ORDERED: MIDAZOLAM HCL 2 MG/2 ML VIAL ONE (14:37)
[2018-08-07] MEDS ORDERED: SODIUM CHLORIDE 0.9% 500 ML IV ONE (14:43)
[2018-08-07] MEDS ORDERED: LIDOCAINE 1% 30 ML/SOD BICARB 8.4% 4 ML SQ ONE (14:45)
[2018-08-07] MEDS ORDERED: IOHEXOL 300 MG/ML 50 ML VIAL IVP ONE (14:45)
[2018-08-07] MEDS ORDERED: FentaNYL CITRATE-PF 100 MCG/2 ML VIAL IVP ONE ×2 (14:45→15:15)
[2018-08-07] MEDS ORDERED: MIDAZOLAM HCL 2 MG/2 ML VIAL IVP ONE (14:45)
[2018-08-07] MEDS ORDERED: ONDANSETRON HCL 4 MG/2 ML VIAL ONE (15:05)
[2018-08-07] MEDS ORDERED: ONDANSETRON HCL 4 MG/2 ML VIAL IVP ONE (15:15)
[2018-08-07] MEDS ORDERED: HydrALAZINE HCL 20 MG/ML VIAL ONE (15:21)
[2018-08-07] MEDS ORDERED: HydrALAZINE HCL 20 MG/ML VIAL IVP ONE (15:30)
[2018-08-07] MEDS: CefTRIAXone 1 GM/DEXTROSE 50 ML IV SCH (16:34)
[2018-08-07] MEDS: ATORVASTATIN CALCIUM 20 MG TABLET PO SCH (17:27)
[2018-08-07] MEDS: PANTOPRAZOLE SODIUM 40 MG DR TABLET PO SCH (17:27)
[2018-08-07] MEDS: DOXYCYCLINE HYCLATE 100 MG CAPSULE PO SCH (19:31)
[2018-08-07] MEDS: ACETAMINOPHEN 325 MG TABLET PO PRN (19:32)
[2018-08-07] MEDS: ONDANSETRON HCL 4 MG/2 ML VIAL IVP PRN (20:02)
[2018-08-07 20:29] LABS: GLUCOMETER DEV NAME(LOC) 5S.2; GLUCOSE,POINT OF CARE 155 MG/DL (70-110)
[2018-08-07] MEDS: CeFAZolin 1 GM/DEXTROSE 50 ML IV SCH (20:48)
[2018-08-07 21:04] LABS: GLUCOMETER DEV NAME(LOC) 5S.1; GLUCOSE,POINT OF CARE 153 MG/DL (70-110)
[2018-08-08] VITALS (8 sets, daily range): BP systolic 103–144; BP diastolic 53–70
[2018-08-08] MEDS: IPRATROPIUM BROMIDE 0.5 MG/2.5 ML NEB SOLUTION NEB SCH ×4 (00:25→23:39)
[2018-08-08] MEDS: CeFAZolin 1 GM/DEXTROSE 50 ML IV SCH ×2 (02:21→08:53)
[2018-08-08 07:10] LABS: CALCIUM, TOTAL 7.9 mg/dL (8.8-10.5); CREATININE 2.82 mg/dL (0.60-1.30)
[2018-08-08] MEDS: SODIUM BICARBONATE 650 MG TABLET PO SCH (08:54)
[2018-08-08] MEDS: ALLOPURINOL 100 MG TABLET PO SCH ×2 (08:54→21:08)
[2018-08-08] MEDS: DOCUSATE SODIUM 100 MG CAPSULE PO SCH ×2 (08:54→21:08)
[2018-08-08] MEDS: HEPARIN SODIUM,PORCINE 5,000 UNITS/ML VIAL SQ SCH ×3 (08:54→16:52)
[2018-08-08] MEDS: ATORVASTATIN CALCIUM 20 MG TABLET PO SCH (08:54)
[2018-08-08] MEDS: PANTOPRAZOLE SODIUM 40 MG DR TABLET PO SCH (08:54)
[2018-08-08] MEDS: DOXYCYCLINE HYCLATE 100 MG CAPSULE PO SCH ×2 (08:54→21:08)
[2018-08-08] MEDS: HydrALAZINE HCL 25 MG TABLET PO SCH ×3 (09:00→21:07)
[2018-08-08] MEDS: LACTULOSE 20 GM/30 ML SOLUTION UDCUP PO SCH (09:10)
[2018-08-08 11:42] LABS: BASOPHILS % (AUTO) 0.2 % (0.0-2.0); EOSINOPHILS % (AUTO) 0.1 % (1.0-6.0); HEMATOCRIT 26.4 % (36-46); HEMOGLOBIN 8.8 g/dL (12.0-16.0); LYMPHOCYTES # (AUTO) 0.7 K/uL (1.0-4.8); LYMPHOCYTES % (AUTO) 6.9 % (22.0-44.0); MEAN CORPUSCULAR HEMOGLOBIN 30.8 pg (26.0-34.0); MEAN CORPUSCULAR HGB CONC 33.3 G/dL (31.0-37.0); MEAN CORPUSCULAR VOLUME 93 fL (80-100); MONOCYTES # (AUTO) 0.7 K/uL (0.1-1.0); MONOCYTES % (AUTO) 7.1 % (2.0-9.0); NEUTROPHILS # (AUTO) 8.9 K/uL (1.8-7.7); PLATELET COUNT (AUTO) 174 K/uL (150-450); RED BLOOD CELL COUNT(AUTO) 2.85 MIL/uL (4.00-5.20); RED CELL DISTRIBUTION WIDTH 14.2 % (11.5-14.5)
[2018-08-08 11:43] LABS: NEUTROPHILS % (AUTO) 85.7 % (40.0-70.0)
[2018-08-08 11:53] LABS: CALCIUM, TOTAL 7.9 mg/dL (8.8-10.5); CREATININE 2.78 mg/dL (0.60-1.30); POTASSIUM 3.8 mmol/L (3.5-5.1)
[2018-08-08 11:58] LABS: ALBUMIN 2.3 g/dL (3.4-5.0); BILIRUBIN,TOTAL 0.2 mg/dL (0.1-1.0); TOTAL PROTEIN, SERUM 5.8 g/dL (6.4-8.2)
[2018-08-08] MEDS: INSULIN LISPRO 100 UNITS/ML SQ PRN (12:11)
[2018-08-08] MEDS: ACETAMINOPHEN 325 MG TABLET PO PRN ×2 (12:12→21:08)
[2018-08-08 12:19] LABS: GLUCOMETER DEV NAME(LOC) 5S.1; GLUCOSE,POINT OF CARE 100 MG/DL (70-110)
[2018-08-08 12:20] LABS: GLUCOMETER DEV NAME(LOC) 5S.2; GLUCOSE,POINT OF CARE 170 MG/DL (70-110)
[2018-08-08] MEDS: CefTRIAXone 1 GM/DEXTROSE 50 ML IV SCH (16:51)
[2018-08-08] MEDS ORDERED: HEPARIN SODIUM,PORCINE 1,000 UNITS/ML VIAL IVP ONE ×2 (18:15→18:19)
[2018-08-08 22:19] LABS: GLUCOMETER DEV NAME(LOC) 5S.1; GLUCOSE,POINT OF CARE 102 MG/DL (70-110)
[2018-08-08 22:20] LABS: GLUCOMETER DEV NAME(LOC) 5S.1; GLUCOSE,POINT OF CARE 128 MG/DL (70-110)
[2018-08-09] MEDS: HEPARIN SODIUM,PORCINE 5,000 UNITS/ML VIAL SQ SCH ×4 (00:11→23:02)
[2018-08-09 04:57] VITALS: BP 154/68
[2018-08-09 05:21] LABS: BASOPHILS % (AUTO) 0.2 % (0.0-2.0); EOSINOPHILS % (AUTO) 0.3 % (1.0-6.0); HEMATOCRIT 24.9 % (36-46); HEMOGLOBIN 8.5 g/dL (12.0-16.0); LYMPHOCYTES % (AUTO) 10.9 % (22.0-44.0); MEAN CORPUSCULAR HEMOGLOBIN 30.8 pg (26.0-34.0); MEAN CORPUSCULAR HGB CONC 34.1 G/dL (31.0-37.0); MEAN CORPUSCULAR VOLUME 90 fL (80-100); MONOCYTES # (AUTO) 0.7 K/uL (0.1-1.0); MONOCYTES % (AUTO) 7.8 % (2.0-9.0); NEUTROPHILS # (AUTO) 7.3 K/uL (1.8-7.7); NEUTROPHILS % (AUTO) 80.8 % (40.0-70.0); PLATELET COUNT (AUTO) 175 K/uL (150-450); RED BLOOD CELL COUNT(AUTO) 2.75 MIL/uL (4.00-5.20); RED CELL DISTRIBUTION WIDTH 14.2 % (11.5-14.5)
[2018-08-09 05:38] LABS: CALCIUM, TOTAL 8.3 mg/dL (8.8-10.5); CREATININE 1.88 mg/dL (0.60-1.30); MAGNESIUM 1.7 mg/dL (1.80-2.40); PHOSPHORUS 4.3 mg/dL (2.5-4.9); POTASSIUM 3.9 mmol/L (3.5-5.1)
[2018-08-09 05:41] LABS: BILIRUBIN,TOTAL 0.4 mg/dL (0.1-1.0); CALCIUM, TOTAL 8.3 mg/dL (8.8-10.5); CREATININE 1.85 mg/dL (0.60-1.30); POTASSIUM 3.9 mmol/L (3.5-5.1); TOTAL PROTEIN, SERUM 5.5 g/dL (6.4-8.2)
[2018-08-09 05:54] LABS: GLUCOMETER DEV NAME(LOC) 5S.1; GLUCOSE,POINT OF CARE 94 MG/DL (70-110)
[2018-08-09] MEDS: IPRATROPIUM BROMIDE 0.5 MG/2.5 ML NEB SOLUTION NEB SCH ×3 (08:04→23:33)
[2018-08-09] MEDS: DOCUSATE SODIUM 100 MG CAPSULE PO SCH ×2 (08:14→20:16)
[2018-08-09] MEDS: PANTOPRAZOLE SODIUM 40 MG DR TABLET PO SCH (08:14)
[2018-08-09] MEDS: ALLOPURINOL 100 MG TABLET PO SCH ×2 (08:14→20:16)
[2018-08-09] MEDS: ATORVASTATIN CALCIUM 20 MG TABLET PO SCH (08:14)
[2018-08-09] MEDS: DOXYCYCLINE HYCLATE 100 MG CAPSULE PO SCH ×2 (08:14→20:16)
[2018-08-09] MEDS: LACTULOSE 20 GM/30 ML SOLUTION UDCUP PO SCH (08:14)
[2018-08-09] MEDS: HydrALAZINE HCL 25 MG TABLET PO SCH ×3 (08:14→20:16)
[2018-08-09 08:20] VITALS: BP 144/53
[2018-08-09] MEDS: ONDANSETRON HCL 4 MG/2 ML VIAL IVP PRN (09:33)
[2018-08-09] MEDS: METOCLOPRAMIDE HCL 5 MG TABLET PO SCH ×3 (10:58→20:16)
[2018-08-09 11:25] VITALS: BP 134/67
[2018-08-09] MEDS: CefTRIAXone 1 GM/DEXTROSE 50 ML IV SCH (14:24)
[2018-08-09 15:15] LABS: GLUCOMETER DEV NAME(LOC) 5S.1; GLUCOSE,POINT OF CARE 106 MG/DL (70-110)
[2018-08-09 15:39] VITALS: BP 142/49
[2018-08-09] MEDS ORDERED: SODIUM CHLORIDE 0.9% 100 ML ONE (16:46)
[2018-08-09] MEDS: INSULIN LISPRO 100 UNITS/ML SQ PRN ×2 (17:29→20:42)
[2018-08-09 19:28] VITALS: BP 121/42
[2018-08-09 23:46] VITALS: BP 117/61
[2018-08-10 04:22] VITALS: BP 135/68
[2018-08-10] MEDS: METOCLOPRAMIDE HCL 5 MG TABLET PO SCH ×4 (05:55→21:00)
[2018-08-10 06:02] LABS: BASOPHILS % (AUTO) 0.2 % (0.0-2.0); EOSINOPHILS % (AUTO) 0.2 % (1.0-6.0); HEMATOCRIT 26.1 % (36-46); HEMOGLOBIN 8.7 g/dL (12.0-16.0); LYMPHOCYTES # (AUTO) 1.5 K/uL (1.0-4.8); LYMPHOCYTES % (AUTO) 15.9 % (22.0-44.0); MEAN CORPUSCULAR HEMOGLOBIN 30.4 pg (26.0-34.0); MEAN CORPUSCULAR HGB CONC 33.5 G/dL (31.0-37.0); MEAN CORPUSCULAR VOLUME 91 fL (80-100); MONOCYTES # (AUTO) 1.1 K/uL (0.1-1.0); NEUTROPHILS % (AUTO) 72.7 % (40.0-70.0); PLATELET COUNT (AUTO) 191 K/uL (150-450); RED BLOOD CELL COUNT(AUTO) 2.88 MIL/uL (4.00-5.20); RED CELL DISTRIBUTION WIDTH 14.4 % (11.5-14.5)
[2018-08-10 06:09] LABS: GLUCOMETER DEV NAME(LOC) 5S.1; GLUCOSE,POINT OF CARE 142 MG/DL (70-110)
[2018-08-10 06:30] LABS: ALBUMIN 2.3 g/dL (3.4-5.0); BILIRUBIN,TOTAL 0.3 mg/dL (0.1-1.0); CREATININE 2.49 mg/dL (0.60-1.30); MAGNESIUM 1.9 mg/dL (1.80-2.40); PHOSPHORUS 4.6 mg/dL (2.5-4.9); POTASSIUM 4.1 mmol/L (3.5-5.1); TOTAL PROTEIN, SERUM 5.8 g/dL (6.4-8.2)
[2018-08-10 07:49] VITALS: BP_SYST 133; BP_SYST 136; BP_DIAS 55; BP_DIAS 77
[2018-08-10 08:04] LABS: GLUCOMETER DEV NAME(LOC) 5S.2; GLUCOSE,POINT OF CARE 136 MG/DL (70-110)
[2018-08-10 08:04] LABS: GLUCOMETER DEV NAME(LOC) 5S.2; GLUCOSE,POINT OF CARE 143 MG/DL (70-110)
[2018-08-10] MEDS: IPRATROPIUM BROMIDE 0.5 MG/2.5 ML NEB SOLUTION NEB SCH ×3 (08:24→23:54)
[2018-08-10] MEDS: PANTOPRAZOLE SODIUM 40 MG DR TABLET PO SCH (09:00)
[2018-08-10] MEDS: ATORVASTATIN CALCIUM 20 MG TABLET PO SCH (09:00)
[2018-08-10] MEDS: HEPARIN SODIUM,PORCINE 5,000 UNITS/ML VIAL SQ SCH ×3 (09:00→23:45)
[2018-08-10] MEDS: DOXYCYCLINE HYCLATE 100 MG CAPSULE PO SCH ×2 (09:00→20:59)
[2018-08-10] MEDS: LACTULOSE 20 GM/30 ML SOLUTION UDCUP PO SCH (09:00)
[2018-08-10] MEDS: DOCUSATE SODIUM 100 MG CAPSULE PO SCH ×2 (09:00→20:59)
[2018-08-10] MEDS: HydrALAZINE HCL 25 MG TABLET PO SCH ×3 (09:00→20:59)
[2018-08-10] MEDS: ALLOPURINOL 100 MG TABLET PO SCH ×2 (09:01→20:59)
[2018-08-10] MEDS: INSULIN LISPRO 100 UNITS/ML SQ PRN ×2 (11:33→18:03)
[2018-08-10 11:36] VITALS: BP 135/57
[2018-08-10 13:29] LABS: GLUCOMETER DEV NAME(LOC) 5S.1; GLUCOSE,POINT OF CARE 169 MG/DL (70-110)
[2018-08-10] MEDS: CefTRIAXone 1 GM/DEXTROSE 50 ML IV SCH (14:21)
[2018-08-10 15:36] VITALS: BP 136/82
[2018-08-10] MEDS: ACETAMINOPHEN 325 MG TABLET PO PRN (16:15)
[2018-08-10 18:34] LABS: GLUCOMETER DEV NAME(LOC) 5S.2; GLUCOSE,POINT OF CARE 141 MG/DL (70-110)
[2018-08-10 19:32] VITALS: BP 140/67
[2018-08-10] MEDS: GuaiFENesin/D-METHORPHAN [SUGAR-FREE] 200-20MG/10 ML SYRUP UDCUP PO PRN (20:59)
[2018-08-10 21:15] LABS: GLUCOMETER DEV NAME(LOC) 5S.2; GLUCOSE,POINT OF CARE 115 MG/DL (70-110)
[2018-08-10 23:36] VITALS: BP 133/50
[2018-08-11 04:27] VITALS: BP 149/64
[2018-08-11] MEDS ORDERED: SODIUM CHLORIDE 0.9% 2,000 ML IV ONE (05:49)
[2018-08-11] MEDS: METOCLOPRAMIDE HCL 5 MG TABLET PO SCH ×4 (06:34→20:03)
[2018-08-11] MEDS: GuaiFENesin/D-METHORPHAN [SUGAR-FREE] 200-20MG/10 ML SYRUP UDCUP PO PRN ×2 (06:34→20:04)
[2018-08-11 06:59] LABS: GLUCOMETER DEV NAME(LOC) 5S.1; GLUCOSE,POINT OF CARE 130 MG/DL (70-110)
[2018-08-11 07:20] LABS: BASOPHILS % (AUTO) 0.6 % (0.0-2.0); EOSINOPHILS % (AUTO) 0.1 % (1.0-6.0); HEMATOCRIT 26.6 % (36-46); HEMOGLOBIN 9.1 g/dL (12.0-16.0); LYMPHOCYTES # (AUTO) 1.1 K/uL (1.0-4.8); LYMPHOCYTES % (AUTO) 11.3 % (22.0-44.0); MEAN CORPUSCULAR HEMOGLOBIN 31.1 pg (26.0-34.0); MEAN CORPUSCULAR HGB CONC 34.1 G/dL (31.0-37.0); MEAN CORPUSCULAR VOLUME 91 fL (80-100); MONOCYTES # (AUTO) 0.9 K/uL (0.1-1.0); MONOCYTES % (AUTO) 8.9 % (2.0-9.0); NEUTROPHILS # (AUTO) 7.8 K/uL (1.8-7.7); NEUTROPHILS % (AUTO) 79.1 % (40.0-70.0); PLATELET COUNT (AUTO) 212 K/uL (150-450); RED BLOOD CELL COUNT(AUTO) 2.92 MIL/uL (4.00-5.20); RED CELL DISTRIBUTION WIDTH 14.2 % (11.5-14.5)
[2018-08-11 07:57] LABS: ALBUMIN 2.5 g/dL (3.4-5.0); BILIRUBIN,TOTAL 0.4 mg/dL (0.1-1.0); CALCIUM, TOTAL 8.1 mg/dL (8.8-10.5); CREATININE 1.96 mg/dL (0.60-1.30); POTASSIUM 3.9 mmol/L (3.5-5.1)
[2018-08-11] MEDS: IPRATROPIUM BROMIDE 0.5 MG/2.5 ML NEB SOLUTION NEB SCH ×2 (08:00→15:05)
[2018-08-11] MEDS ORDERED: HEPARIN SODIUM,PORCINE 1,000 UNITS/ML VIAL IVP ONE ×2 (08:00)
[2018-08-11] MEDS: HEPARIN SODIUM,PORCINE 5,000 UNITS/ML VIAL SQ SCH ×3 (08:20→23:21)
[2018-08-11] MEDS: ATORVASTATIN CALCIUM 20 MG TABLET PO SCH (08:21)
[2018-08-11] MEDS: LACTULOSE 20 GM/30 ML SOLUTION UDCUP PO SCH (08:21)
[2018-08-11] MEDS: DOCUSATE SODIUM 100 MG CAPSULE PO SCH ×2 (08:21→20:03)
[2018-08-11] MEDS: HydrALAZINE HCL 25 MG TABLET PO SCH ×3 (08:21→20:03)
[2018-08-11] MEDS: PANTOPRAZOLE SODIUM 40 MG DR TABLET PO SCH (08:22)
[2018-08-11] MEDS: DOXYCYCLINE HYCLATE 100 MG CAPSULE PO SCH ×2 (08:22→20:03)
[2018-08-11] MEDS: ALLOPURINOL 100 MG TABLET PO SCH ×2 (08:22→20:03)
[2018-08-11] MEDS: EPOETIN ALFA 10,000 UNITS/ML VIAL SQ SCH (08:43)
[2018-08-11 08:58] VITALS: BP 145/65
[2018-08-11 11:30] VITALS: BP 135/55
[2018-08-11] MEDS: INSULIN LISPRO 100 UNITS/ML SQ PRN (11:46)
[2018-08-11 15:18] VITALS: BP 148/88
[2018-08-11] MEDS: CefTRIAXone 1 GM/DEXTROSE 50 ML IV SCH (15:29)
[2018-08-11] MEDS ORDERED: DSS100 PO (17:13)
[2018-08-11] MEDS ORDERED: ALLO100T PO (17:14)
[2018-08-11] MEDS ORDERED: HYDR-2924 PO (17:15)
[2018-08-11] MEDS ORDERED: LACT30L PO (17:16)
[2018-08-11] MEDS ORDERED: AMOX1TAB15 PO (17:17)
[2018-08-11] MEDS ORDERED: DOXY100C PO (17:19)
[2018-08-11 19:59] VITALS: BP 138/59
[2018-08-11] MEDS: ONDANSETRON HCL 4 MG/2 ML VIAL IVP PRN (20:33)
[2018-08-12 01:42] VITALS: BP 132/57
[2018-08-12] MEDS: IPRATROPIUM BROMIDE 0.5 MG/2.5 ML NEB SOLUTION NEB SCH ×3 (02:08→14:04)
[2018-08-12] MEDS: GuaiFENesin/D-METHORPHAN [SUGAR-FREE] 200-20MG/10 ML SYRUP UDCUP PO PRN ×2 (05:48→08:55)
[2018-08-12] MEDS: METOCLOPRAMIDE HCL 5 MG TABLET PO SCH ×2 (05:48→12:28)
[2018-08-12 05:52] VITALS: BP 115/59
[2018-08-12 06:00] LABS: BASOPHILS % (AUTO) 0.5 % (0.0-2.0); EOSINOPHILS % (AUTO) 0.2 % (1.0-6.0); HEMATOCRIT 24.4 % (36-46); HEMOGLOBIN 8.1 g/dL (12.0-16.0); LYMPHOCYTES # (AUTO) 1.6 K/uL (1.0-4.8); LYMPHOCYTES % (AUTO) 16.8 % (22.0-44.0); MEAN CORPUSCULAR HEMOGLOBIN 30.3 pg (26.0-34.0); MEAN CORPUSCULAR HGB CONC 33.2 G/dL (31.0-37.0); MEAN CORPUSCULAR VOLUME 91 fL (80-100); MONOCYTES # (AUTO) 0.9 K/uL (0.1-1.0); MONOCYTES % (AUTO) 9.9 % (2.0-9.0); NEUTROPHILS # (AUTO) 6.8 K/uL (1.8-7.7); NEUTROPHILS % (AUTO) 72.6 % (40.0-70.0); PLATELET COUNT (AUTO) 192 K/uL (150-450); RED BLOOD CELL COUNT(AUTO) 2.67 MIL/uL (4.00-5.20); RED CELL DISTRIBUTION WIDTH 14.5 % (11.5-14.5)
[2018-08-12 06:20] LABS: GLUCOMETER DEV NAME(LOC) 5S.1; GLUCOSE,POINT OF CARE 115 MG/DL (70-110)
[2018-08-12 06:20] LABS: GLUCOMETER DEV NAME(LOC) 5S.1; GLUCOSE,POINT OF CARE 138 MG/DL (70-110)
[2018-08-12 06:20] LABS: GLUCOMETER DEV NAME(LOC) 5S.1; GLUCOSE,POINT OF CARE 232 MG/DL (70-110)
[2018-08-12 06:32] LABS: ALBUMIN 2.3 g/dL (3.4-5.0); BILIRUBIN,TOTAL 0.4 mg/dL (0.1-1.0); CALCIUM, TOTAL 7.8 mg/dL (8.8-10.5); CREATININE 1.92 mg/dL (0.60-1.30); TOTAL PROTEIN, SERUM 5.4 g/dL (6.4-8.2)
[2018-08-12 07:17] VITALS: BP 123/68
[2018-08-12] MEDS: DOCUSATE SODIUM 100 MG CAPSULE PO SCH (08:27)
[2018-08-12] MEDS: PANTOPRAZOLE SODIUM 40 MG DR TABLET PO SCH (08:27)
[2018-08-12] MEDS: LACTULOSE 20 GM/30 ML SOLUTION UDCUP PO SCH (08:27)
[2018-08-12] MEDS: ATORVASTATIN CALCIUM 20 MG TABLET PO SCH (08:28)
[2018-08-12] MEDS: HydrALAZINE HCL 25 MG TABLET PO SCH (08:28)
[2018-08-12] MEDS: DOXYCYCLINE HYCLATE 100 MG CAPSULE PO SCH (08:30)
[2018-08-12] MEDS: ALLOPURINOL 100 MG TABLET PO SCH (08:31)
[2018-08-12] MEDS: ONDANSETRON HCL 4 MG/2 ML VIAL IVP PRN (08:32)
[2018-08-12 09:49] LABS: GLUCOMETER DEV NAME(LOC) 5S.2; GLUCOSE,POINT OF CARE 123 MG/DL (70-110)
[2018-08-12 11:30] VITALS: BP 128/59
[2018-08-12 14:10] LABS: GLUCOMETER DEV NAME(LOC) 5S.2; GLUCOSE,POINT OF CARE 173 MG/DL (70-110)
[2018-08-12 15:42] LABS: HEMOGLOBIN 8.3 g/dL (12.0-16.0)
== END 2018-08-12 15:10 | DRG 853 ==
LOC: EMS 14:18 → ICU 20:00 → 5S 08-04 14:45
PROVIDERS: ADMIT Internal Medicine; ATTEND Internal Medicine
PROC: B54NZZA Ultrasonography of Left Upper Extremity Veins, Guidance (ICD-10-PCS; 2018-08-05)
PROC: 05HY33Z Insertion of Infusion Device into Upper Vein, Percutaneous Approach (ICD-10-PCS; 2018-08-05)
PROC: 5A1D70Z Performance of Urinary Filtration, Intermittent, Less than 6 Hours Per Day (ICD-10-PCS; 2018-08-06)
PROC: 02H63JZ Insertion of Pacemaker Lead into Right Atrium, Percutaneous Approach (ICD-10-PCS; principal; 2018-08-07)
PROC: 02HK3JZ Insertion of Pacemaker Lead into Right Ventricle, Percutaneous Approach (ICD-10-PCS; 2018-08-07)
PROC: 0JH606Z Insertion of Pacemaker, Dual Chamber into Chest Subcutaneous Tissue and Fascia, Open Approach (ICD-10-PCS; 2018-08-07)
PROC: B5171ZZ Fluoroscopy of Left Subclavian Vein using Low Osmolar Contrast (ICD-10-PCS; 2018-08-07)
PROC: 0W993ZZ Drainage of Right Pleural Cavity, Percutaneous Approach (ICD-10-PCS; 2018-08-07)
PROC: 5A1D70Z Performance of Urinary Filtration, Intermittent, Less than 6 Hours Per Day (ICD-10-PCS; 2018-08-08)
PROC: 5A1D70Z Performance of Urinary Filtration, Intermittent, Less than 6 Hours Per Day (ICD-10-PCS; 2018-08-11)
DX: A41.9 Sepsis, unspecified organism (principal); I50.21 Acute systolic (congestive) heart failure; J96.01 Acute respiratory failure with hypoxia; J15.9 Unspecified bacterial pneumonia; N17.0 Acute kidney failure with tubular necrosis; N18.6 End stage renal disease; N39.0 Urinary tract infection, site not specified; I13.0 Hypertensive heart and chronic kidney disease with heart failure and stage 1 through stage 4 chronic kidney disease, or unspecified chronic kidney disease; E87.2 Acidosis; I13.2 Hypertensive heart and chronic kidney disease with heart failure and with stage 5 chronic kidney disease, or end stage renal disease; I44.2 Atrioventricular block, complete; J90 Pleural effusion, not elsewhere classified; E78.5 Hyperlipidemia, unspecified; D64.9 Anemia, unspecified; E87.5 Hyperkalemia; E78.00 Pure hypercholesterolemia, unspecified; E11.22 Type 2 diabetes mellitus with diabetic chronic kidney disease; E79.0 Hyperuricemia without signs of inflammatory arthritis and tophaceous disease; Z88.5 Allergy status to narcotic agent; I25.2 Old myocardial infarction; Z88.8 Allergy status to other drugs, medicaments and biological substances; Z82.49 Family history of ischemic heart disease and other diseases of the circulatory system; Z99.2 Dependence on renal dialysis
CPT/HCPCS: 32555; 33208; 36005; 36245; 36556; 36569; 36600; 71250; 76000; 76770; 76937; 76942; 82043; 82465; 82570; 82784; 82805; 82945; 83615; 83735; 83986; 84100; 84133; 84145; 84155; 84156; 84157; 84165; 84300; 84540; 84550; 85014; 85018; 87015; 87040; 87070; 87081; 87086; 87206; 87340; 87449; 87899; 88108; 89051; 93005; 93306; 93970; 94640; 96374; 97110; 97162; 97166; 97530; 97535; 99291; G0238; G0378; J0360; J0690; J0696; J0885; J1265; J1644; J1940; J1956; J2250; J2405; J3010; J3490; J7030; J7050; Q9967

== ENCOUNTER 2018-08-24 23:22 | Emergency (ER) | payer MEDICARE ==
[~2018-08-24] VITALS: Ht 162.6 cm; Wt 73.6 kg
[~2018-08-24 23:22] MED LIST changes: +ALLO100T PO; -AMLO-512 PO; +AMOX1TAB15 PO; +DOXY100C PO; +DSS100 PO; -ERGO2000 PO; +HYDR-2924 PO; +LACT30L PO; +LINA5TAB PO; -MORP15 PO; -PERCT PO; -TRIGENTA PO
[2018-08-24] MEDS ORDERED: CALC250T2 PO (23:36)
[2018-08-24] MEDS ORDERED: LORA0.5T2 PO (23:36)
[2018-08-24] MEDS ORDERED: INSU100V SQ (23:36)
[2018-08-24 23:45] LABS: BASOPHILS % (AUTO) 0.4 % (0.0-2.0); EOSINOPHILS % (AUTO) 0.3 % (1.0-6.0); HEMATOCRIT 29.4 % (36-46); HEMOGLOBIN 9.4 g/dL (12.0-16.0); LYMPHOCYTES # (AUTO) 2.5 K/uL (1.0-4.8); LYMPHOCYTES % (AUTO) 30.5 % (22.0-44.0); MEAN CORPUSCULAR HEMOGLOBIN 30.1 pg (26.0-34.0); MEAN CORPUSCULAR HGB CONC 32.1 G/dL (31.0-37.0); MEAN CORPUSCULAR VOLUME 94 fL (80-100); MONOCYTES # (AUTO) 0.6 K/uL (0.1-1.0); MONOCYTES % (AUTO) 7.2 % (2.0-9.0); NEUTROPHILS % (AUTO) 61.6 % (40.0-70.0); PLATELET COUNT (AUTO) 275 K/uL (150-450); RED BLOOD CELL COUNT(AUTO) 3.14 MIL/uL (4.00-5.20); RED CELL DISTRIBUTION WIDTH 15.8 % (11.5-14.5)
[2018-08-24 23:49] LABS: CALCIUM, TOTAL 8.2 mg/dL (8.8-10.5); CREATININE 1.25 mg/dL (0.60-1.30); POTASSIUM 4.4 mmol/L (3.5-5.1)
[2018-08-24 23:52] LABS: PROTHROMBIN TIME 10.3 SEC (9.4-11.6)
[2018-08-24 23:55] LABS: ALBUMIN 2.8 g/dL (3.4-5.0); BILIRUBIN,TOTAL 0.4 mg/dL (0.1-1.0); TOTAL PROTEIN, SERUM 6.7 g/dL (6.4-8.2)
[2018-08-25] MEDS ORDERED: FUROSEMIDE 40 MG/4 ML VIAL IVP ONE
[2018-08-25 00:51] LABS: APPEARANCE,URINE CLEAR (CLEAR); BILIRUBIN,URINE NEGATIVE (NEGATIVE); GLUCOSE, URINE (UA) NEGATIVE (NEGATIVE); KETONES,URINE NEGATIVE (NEGATIVE); LEUKOCYTE ESTERASE ,URINE NEGATIVE (NEGATIVE); NITRATE,URINE NEGATIVE (NEGATIVE); OCCULT BLOOD,URINE NEGATIVE (NEGATIVE); PROTEIN,URINE SEE CONFIRM (NEGATIVE); UROBILINOGEN,URINE 0.2 mg/dL (<=1.0)
[2018-08-25 01:02] LABS: SULFOSALICYLIC ACID,URINE 2+ (Negative)
[2018-08-25 01:03] LABS: BACTERIA,URINE None Seen /HPF (None Seen); RBC,URINE 0-2 /HPF (0-2); SQUAMOUS EPITHELIAL CELL,UR Few /LPF (None Seen); YEAST,URINE Rare /HPF (None Seen)
[2018-08-25 02:04] LABS: INFLUENZA TYPE A NEGATIVE FOR TYPE A (NEGATIVE); INFLUENZA TYPE B NEGATIVE FOR TYPE B (NEGATIVE)
[2018-08-25 07:06] VITALS: BP 170/73
== END 2018-08-25 08:27 | disposition short-term general hospital (02) ==
LOC: EMS 23:22
DX: I13.0 Hypertensive heart and chronic kidney disease with heart failure and stage 1 through stage 4 chronic kidney disease, or unspecified chronic kidney disease (principal); E11.22 Type 2 diabetes mellitus with diabetic chronic kidney disease; N18.9 Chronic kidney disease, unspecified; I50.9 Heart failure, unspecified; E44.0 Moderate protein-calorie malnutrition; J90 Pleural effusion, not elsewhere classified; E11.9 Type 2 diabetes mellitus without complications; Z68.27 Body mass index [BMI] 27.0-27.9, adult; Z95.0 Presence of cardiac pacemaker; Z88.8 Allergy status to other drugs, medicaments and biological substances; Z88.5 Allergy status to narcotic agent; Z79.4 Long term (current) use of insulin
CPT/HCPCS: 36415; 51702; 71045; 80053; 81001; 82550; 82962; 83605; 83880; 84484; 85025; 85610; 85730; 87040; 87804; 93005; 94660; 96374; 99291; J1940

== ENCOUNTER 2018-10-02 04:18 | Emergency (ER) | payer MEDICARE ==
[~2018-10-02] VITALS: Ht 154.9 cm; Wt 68.2 kg
[~2018-10-02 04:18] MED LIST changes: -ACET-66 PO; -AMOX1TAB15 PO; +CALC250T2 PO; -DOXY100C PO; -HYDR-2924 PO; +INSU100V SQ; +LORA0.5T2 PO
[2018-10-02 04:34] LABS: GLUCOSE,POINT OF CARE 149 MG/DL (70-110)
[2018-10-02 05:29] LABS: BASOPHILS % (AUTO) 0.4 % (0.0-2.0); EOSINOPHILS % (AUTO) 0.1 % (1.0-6.0); HEMATOCRIT 32.8 % (36-46); HEMOGLOBIN 10.6 g/dL (12.0-16.0); LYMPHOCYTES # (AUTO) 1.6 K/uL (1.0-4.8); LYMPHOCYTES % (AUTO) 17.3 % (22.0-44.0); MEAN CORPUSCULAR HEMOGLOBIN 30.5 pg (26.0-34.0); MEAN CORPUSCULAR HGB CONC 32.3 G/dL (31.0-37.0); MEAN CORPUSCULAR VOLUME 94 fL (80-100); MONOCYTES # (AUTO) 0.5 K/uL (0.1-1.0); MONOCYTES % (AUTO) 5.9 % (2.0-9.0); NEUTROPHILS % (AUTO) 76.3 % (40.0-70.0); PLATELET COUNT (AUTO) 209 K/uL (150-450); RED BLOOD CELL COUNT(AUTO) 3.48 MIL/uL (4.00-5.20)
[2018-10-02] MEDS ORDERED: ASPIRIN 81 MG CHEWABLE TABLET PO ONE (05:30)
[2018-10-02 05:36] LABS: CREATININE 1.41 mg/dL (0.60-1.30); POTASSIUM 4.9 mmol/L (3.5-5.1)
[2018-10-02 05:42] LABS: INR 0.9 (0.9-1.1); PROTHROMBIN TIME 9.9 SEC (9.4-11.6)
[2018-10-02 06:02] LABS: ALBUMIN 3.5 g/dL (3.4-5.0); BILIRUBIN,TOTAL 0.3 mg/dL (0.1-1.0); TOTAL PROTEIN, SERUM 7.1 g/dL (6.4-8.2)
[2018-10-02] MEDS ORDERED: ACETAMINOPHEN/CODEINE 300-30 MG TABLET PO ONE (06:45)
[2018-10-02 09:30] VITALS: BP 130/55
== END 2018-10-02 09:45 | disposition home or self-care (01) ==
LOC: EMS 04:20
DX: M25.512 Pain in left shoulder (principal); I42.9 Cardiomyopathy, unspecified; E11.9 Type 2 diabetes mellitus without complications; I10 Essential (primary) hypertension; Z79.899 Other long term (current) drug therapy; Z88.6 Allergy status to analgesic agent; Z88.5 Allergy status to narcotic agent; Z88.8 Allergy status to other drugs, medicaments and biological substances; Z95.0 Presence of cardiac pacemaker
CPT/HCPCS: 93005